=== PATIENT | female | born 1945 | race Caucasian/White ===

== ENCOUNTER → 2019-12-08 12:56 | Outpatient (BNVA) | payer MEDICARE, SELFPAY | PROVIDERS: PCP Obstetrics & Gynecology; Visit Provider Internal Medicine Rheumatology | DX: R76.8 Other specified abnormal immunological findings in serum (principal); Z11.59 Encounter for screening for other viral diseases; Z79.899 Other long term (current) drug therapy; M15.9 Polyosteoarthritis, unspecified; H35.30 Unspecified macular degeneration; Z72.89 Other problems related to lifestyle; Z71.89 Other specified counseling; M19.042 Primary osteoarthritis, left hand; M19.041 Primary osteoarthritis, right hand | CPT/HCPCS: 36415; 71046; 73130; 73630; 80076; 81001; 82306; 82565; 82570; 84156; 84550; 85025; 85651; 86140; 86160; 86480; 86704; 86803; 87340; 99204 ==

== ENCOUNTER 2019-12-08 15:36 | Outpatient (CLI) | payer MEDICARE, SELFPAY ==
--- NOTE | 2019-12-08 15:48 | XR_ITS ---
WS: [id number] LEFT HAND: 3 VIEW(S) TECHNIQUE: PA, oblique and lateral. HISTORY: osteoarthritis COMPARISON: None available. No acute fracture or dislocation. Mild interphalangeal joint space narrowing throughout the hand. Subchondral cystic changes are noted at the interphalangeal joints, most significant involving the second digit. XR/XR hand LT min 3V* [id number] IMPRESSION: Mild osteoarthritis, greatest involving the interphalangeal joints of the secon d finger.
--- NOTE | 2019-12-08 15:48 | XR_ITS ---
WS: [id number] RIGHT FOOT: 3 VIEW(S) TECHNIQUE: AP, oblique and lateral. HISTORY: osteoarthritis COMPARISON: None available. No acute fracture or dislocation. Normal tarsal/metatarsal alignment. No soft tissue abnormality or bone destruction. XR/XR foot RT min 3V* [id number] IMPRESSION: Normal RIGHT foot.
--- NOTE | 2019-12-08 15:48 | XR_ITS ---
WS: [id number] LEFT FOOT: 3 VIEW(S) TECHNIQUE: AP, oblique and lateral. HISTORY: osteoarthritis COMPARISON: None available. No acute fracture or dislocation. Normal tarsal/metatarsal alignment. No soft tissue abnormality or bone destruction. XR/XR foot LT min 3V* [id number] IMPRESSION: Normal LEFT foot.
--- NOTE | 2019-12-08 15:48 | XR_ITS ---
WS: [id number] RIGHT HAND: 3 VIEW(S) TECHNIQUE: PA, oblique and lateral. HISTORY: osteoarthritis COMPARISON: None available. No acute fracture or dislocation. Moderate narrowing of the interphalangeal joint spaces. Loss of cartilage with hypertrophic bone form ation. No periostitis. Some of the changes at the PIP joints of the second and third fingers suggests erosive arthritis. Narrowing of the joint spaces and sclerosis involving the articulations between t he scaphoid and the trapezium and trapezoid. XR/XR hand RT min 3V* [id number] IMPRESSION: 1. Moderate osteoarthritis at the interphalangeal joints. 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 2. Advanced degenerative changes of arthritis between the articulations betwee n the distal scaphoid, trapezium and trapezoid.
--- NOTE | 2019-12-08 15:48 | XR_ITS ---
WS: [id number] CHEST 2 VIEWS HISTORY: osteoarthritis COMPARISON: None available. Lungs: Clear with no abnormality. No pleural effusion or pneumothorax. Cardiac size: Normal. Mediastinum/Aorta: Normal mediastinum. Bones: Normal. XR/XR chest 2V* [id number] IMPRESSION: Normal chest.
== END 2019-12-08 15:37 | disposition home or self-care (01) ==
LOC: RAD 15:41
PROVIDERS: PCP Obstetrics & Gynecology; Visit Provider Internal Medicine Rheumatology
DX: R76.8 Other specified abnormal immunological findings in serum (principal); Z11.59 Encounter for screening for other viral diseases; Z79.899 Other long term (current) drug therapy; H35.30 Unspecified macular degeneration; Z72.89 Other problems related to lifestyle; Z71.89 Other specified counseling; M19.042 Primary osteoarthritis, left hand; M19.041 Primary osteoarthritis, right hand
CPT/HCPCS: 71046; 73130; 73630; 80076; 81001; 82306; 82565; 82570; 84156; 84550; 85025; 85651; 86140; 86160; 86480; 86704; 86803; 87340

== ENCOUNTER → 2020-01-06 12:48 | Outpatient (BNVA) | payer MEDICARE, SELFPAY | PROVIDERS: PCP Obstetrics & Gynecology; Visit Provider Internal Medicine Rheumatology | DX: R76.8 Other specified abnormal immunological findings in serum (principal); Z79.899 Other long term (current) drug therapy; Z84.1 Family history of disorders of kidney and ureter; H35.30 Unspecified macular degeneration; M19.041 Primary osteoarthritis, right hand; M19.042 Primary osteoarthritis, left hand; M17.0 Bilateral primary osteoarthritis of knee | CPT/HCPCS: 99214 ==